=== PATIENT | female | born 1985 | race Caucasian/White ===

== ENCOUNTER 2017-12-10 07:53 | Emergency (ER) | payer OTHER, MEDICAID | END 2017-12-10 08:51 | disposition home or self-care (01) | LOC: FTE 07:53 | DX: T16.1XXA Foreign body in right ear, initial encounter (principal); I10 Essential (primary) hypertension; X58.XXXA Exposure to other specified factors, initial encounter; Y92.9 Unspecified place or not applicable | CPT/HCPCS: 69200; 99283-25 ==